=== PATIENT | female | born 1990 | race Two or more races ===

== ENCOUNTER 2024-07-28 11:14 | Emergency (ER) | payer MEDICAID, SELFPAY ==
[2024-07-28 11:38] VITALS: BP 123/78; PULSE 88; RESP 18; TEMP 37.1; O2SAT 99; BMI 23.8
--- NOTE | 2024-07-28 12:01 | PD.EDANIML ---
ED Animal Bite RME/HPI General Chief Complaint: Animal Bite Stated Complaint: DOG BITE Time Seen by Provider: 07/28/24 11:56 Arrival date/time: 07/28/24 11:14 RME / HPI RME / HPI narrative: 33-year-old female patient was brought in by friend for evaluation regarding dog bite. Incident happened few minutes prior to ER visit, while walking with her dog another dog attacked her and patient sustained dog bite to the left elbow area. Patient sustained 1 cm gaping laceration lateral aspect of the elbow. Patient is able to bend and extend the elbow without any limitation. Patient's tetanus vaccination is unknown. Related Data Home Medications ?Medication ?Instructions ?Recorded ?Confirmed Vitamin * 1 tab PO QDAY #0 tabs 03/09/17 Previous Rx's ?Medication ?Instructions ?Recorded Amox Tr/Potassium Clavulanate * 1 tab PO BID #10 tabs 03/16/17 (AUGMENTIN 875/125 *) ibuprofen 600 mg tablet 600 mg PO Q6HR PRN PAIN #30 tabs 03/16/17 amoxicillin 875 mg-potassium 1 tab PO BID #14 tabs 07/28/24 clavulanate 125 mg tablet ibuprofen 600 mg tablet 600 mg PO Q8H PRN pain #30 tabs 07/28/24 Allergies Allergy/AdvReac Type Severity Reaction Status Date / Time No Known Allergies Allergy Verified 07/28/24 11:16 Review of Systems Review of Systems Narrative Review of Systems: Review of system reviewed and within normal limits except mentioned in HPI ED Exam Narrative Physical exam: VITAL SIGNS: Reviewed. GENERAL APPEARANCE: Alert and interactive, follows commands, no acute distress, HEAD AND FACE: Non-traumatic. ENT: PERRL, pink conjunctivitis, eyelid no trauma, Mucous membrane moist. NECK: Supple, nontender, no nuchal rigidity. CHEST: No tenderness, no crepitus, no paradoxical movement, no retractions. LUNGS: Clear, well ventilated, symmetric, no rales, no wheezing, no ronchi, no stridor, good breath sounds bilaterally. HEART: Regular rate, regular rhythm, no murmur, no gallops. ABDOMEN: Soft, positive bowel sounds, nondistended, no guarding, nontender, no rebound, no masses, RECTAL: Deferred. GENITAL: Deferred. NEUROLOGICAL: Gross motor function intact sensory function intact, Appropriate for age. MUSCULOSKELETAL: low back nontender, full range of motion. EXTREMITIES: +1 cm gaping laceration, left elbow lateral aspect and 0.5 cm gaping laceration left elbow medial aspect with tenderness, full range of motion. SKIN: Color pink, dry, no rash, no lacerations, no abrasions, no contusions. LYMPHATICS: Deferred. Course Quality Measures none Orders Category Date Time Status Amoxicillin/Pot Clav 875 [Augmentin 875] Med 07/28/24 12:00 Discontinued 1 tab PO X1 ONE Ibuprofen Tab [Motrin Tab] Med 07/28/24 12:00 Discontinued 600 mg PO X1 ONE Lidocaine 1% Pf 5 ml [Xylocaine 1% Pf 5 ml] Med 07/28/24 12:00 Discontinued 10 ml INFL X1 ONE TET,DIP/PERT AC (Adult)-Tdap [Boostrix Adult (Tdap) Med 07/28/24 12:00 Discontinued Vacc] 0.5 ml IMI .ONCE ONE Vital Signs Vital signs: Vital Signs Temperature 98.7 F 07/28/24 11:38 Pulse Rate 88 07/28/24 11:38 Respiratory Rate 18 07/28/24 11:38 Blood Pressure 123/78 07/28/24 11:38 Pulse Oximetry (%) 99 07/28/24 11:38 Oxygen Delivery Method Room Air 07/28/24 11:38 Procedures -ED Laceration Laceration 1: Site: other (Elbow) Side (If applicable): right Size (cm): 1 Description: linear Depth: simple, single layer Local Anesthetic: lidocaine 1% Amount of anesthesia used (mL): 3 Pre-repair: wound explored, irrigated extensively and deep structures intact Skin layer closed with: nylon Size (cm): 5-0 Number of sutures: 3 Technique: simple, interrupted Animal Bite MDM Narrative MDM Narrative:: 33-year-old female patient was brought in by friend for evaluation regarding dog bite. Incident happened few minutes prior to ER visit, while walking with her dog another dog attacked her and patient sustained dog bite to the left elbow area. Patient sustained 1 cm gaping laceration lateral aspect of the elbow. Patient is able to bend and extend the elbow without any limitation. Patient's tetanus vaccination is unknown. Repair and suturing was done by me see procedure note patient tolerated the procedure well wound was irrigated with running water for 15 minutes. And I also used Betadine to clean the wound. Patient received Boostrix and Augmentin Patient was advised to report this to law enforcement to quarantine the dog if something happened to the dog patient needs to return to emergency room right away. The dog needs to be observed for 2 weeks. Patient appears nontoxic and hemodynamically stable. Patient discharged home and instructed to follow-up with primary care provider in 24 to 48 hours. Instructed to return to the emergency department immediately if worsening of symptoms Patient data External records reviewed:: None Clinical information provided by:: patient and family Social determinants that could affect healthcare access:: none Patient has the following chronic illnesses:: None How is presenting disease/condition affected by chronic disease/condition?: no chronic disease Evaluation data The following diagnostics were reviewed and interpreted by me:: other (specify) Lab and/or radiology exams considered but not ordered:: None Interpretation Summary: None Medications / Prescriptions Medications or Prescriptions considered but not ordered:: None Medication administrations:: Medication Administration History Discontinued Medications Amoxicillin/Clavulanate Potassium (Amoxicillin/Pot Clav 875 Tablet) 1 tab PO X1 ONE Stop: 07/28/24 12:01 Diphtheria/Tetanus/Acell Pertussis (Diphth,Pertuss(Acell),Tet Vac 0.5 Ml Syr- Adult) 0.5 ml IMi .ONCE ONE Stop: 07/28/24 12:01 Ibuprofen (Ibuprofen Tab 600 Mg Tablet) 600 mg PO X1 ONE Stop: 07/28/24 12:01 Lidocaine HCl (Lidocaine Inj Pf 1% 5 Ml Vial) 10 ml INFL X1 ONE Stop: 07/28/24 12:01 Lidocaine epinephrine Boostrix and Augmentin Consultations Consultation(s) initiated? (list below): No Diagnosis Differential diagnosis animal bite: bite by animal and dog bite Most likely diagnosis given after review of the tests above:: Dog bite elbow Admission Indicated Admission indicated?: not indicated Explain why admission is indicated or not indicated:: Stable Admission Request Was there a request for admission?: No Disposition Plan Disposition Plan: Discharge Discharge Attestation Discharge Attestation: The patient and all family members were given an opportunity to ask questions and understood the discharge instructions. Discharge instructions specifically effects, indications for sooner follow up or return to the emergency department, and the expected course of current diagnosis. Patient condition: Stable Discharge Plan Plan Patient Disposition: HOME (Self Care) Disposition Comment: Stable Prescriptions/Referrals Prescriptions/Med Rec: New amoxicillin-pot clavulanate 875-125 mg tablet 1 tab PO BID Qty: 14 0RF ibuprofen 600 mg tablet 600 mg PO Q8H PRN (Reason: pain) Qty: 30 0RF No Action Vitamin * 1 EACH tablet 1 tab PO QDAY Qty: 0 Amox Tr/Potassium Clavulanate * (AUGMENTIN 875/125 *) 1 TAB tablet 1 tab PO BID Qty: 10 0RF ibuprofen 600 MG tablet 600 mg PO Q6HR PRN (Reason: PAIN) Qty: 30 0RF Referrals: No Primary/Family,Physician [Primary Care Provider] - In 1 week Problem List Clinical Impression: Dog bite of right elbow Patient/Caregiver Discharge Instructions Discharge Activity: activity as tolerated Education Materials: ED Dog Bite Additional Instructions: Thank you for the opportunity for serving you today. You are stable for discharged . You are advised to: Follow-up with your PCP in 1 to 2 days Return to ED for worsening of symptoms Increase oral fluids Take medication as prescribed Report this incident to law enforcement so that they can quarantine the dog and watch the dog for 2 weeks if something happened to the dog. Return to the emergency room right away for rabies shot Print Language: Kiswahili Stand Alone Forms: Devora Award Info., Patient Portal Info Letter
[2024-07-28] MEDS: DIPHTH,PERTUSS(ACELL),TET VAC 0.5 ML SYR- ADULT IMi (12:35)
[2024-07-28] MEDS: AMOXICILLIN/POT CLAV 875 TABLET 1 TAB PO (12:35)
[2024-07-28] MEDS: IBUPROFEN TAB 600 MG TABLET PO (12:35)
[2024-07-28] MEDS: LIDOCAINE HCL 1% 20 ML VIAL 10 ML INFL (12:39)
== END 2024-07-28 12:42 | disposition home or self-care (01) ==
PROVIDERS: Emergency Provider Emergency Medicine
DX: S51.011A Laceration without foreign body of right elbow, initial encounter (principal); W54.0XXA Bitten by dog, initial encounter; Y93.01 Activity, walking, marching and hiking; Z23 Encounter for immunization
CPT/HCPCS: 12001; 90471; 90715; 99283; J3490; A9270